=== PATIENT | male | born 1995 | race American Indian/Alaskan Native ===

== ENCOUNTER 2020-06-20 14:05 | Emergency (ER) | payer SELFPAY ==
[2020-06-20 14:22] VITALS: BP 135/61
--- NOTE | 2020-06-20 14:25 | Emergency Department Report ---
Blank Doc - Documentation Documentation: 25-year-old male that presents with cough and SOB. This initial assessment/diagnostic orders/clinical plan/treatment(s) is/are subject to change based on patient's health status, clinical progression and re- assessment by fellow clinical providers in the ED. Further treatment and workup at subsequent clinical providers discretion. Patient/guardians urged not to elope from the ED as their condition may be serious if not clinically assessed and managed. Initial orders include: 1- Patient sent to [facility] for further evaluation and treatment 2- CXR
--- NOTE | 2020-06-20 14:57 | XRay Report ---
CHEST 2 VIEWS INDICATION / CLINICAL INFORMATION: cough. COMPARISON: None available. FINDINGS: SUPPORT DEVICES: None. HEART / MEDIASTINUM: No significant abnormality. LUNGS / PLEURA: No significant pulmonary or pleural abnormality. No pneumothorax. ADDITIONAL FINDINGS: No significant additional findings. IMPRESSION: 1. No acute findings. Signer Name: Jose Medellin MD Signed: 06/20/2020 2:52 PM Workstation Name: [id number]
[2020-06-20] MEDS ORDERED: IPRATROPIUM 0.02% NEBU 2.5 ML IH ONE (15:28)
[2020-06-20] MEDS ORDERED: ALBUTEROL 2.5 MG/3 ML NEBU IH ONE (15:28)
[2020-06-20] MEDS ORDERED: dexAMETHasone 20 MG/5 ML VIAL IM ONE (15:28)
--- NOTE | 2020-06-20 15:32 | Emergency Department Report ---
ED Shortness of Breath HPI - General Chief Complaint: Dyspnea/Respdistress Stated Complaint: DIFFICULTY BREATHING Time Seen by Provider: 06/20/20 14:23 Source: patient Mode of arrival: Ambulatory Limitations: No Limitations - History of Present Illness Initial Comments: The patient was evaluated in the emergency department for symptoms described in the history of present illness. He/she was evaluated in the context of the global COVID-19 pandemic, which necessitated consideration that the patient might be at risk for infection with the virus that causes COVID-19. Institutional protocols and algorithms that pertain to the evaluation of patients at risk for COVID-19 are in a state of rapid change based on information released by regulatory bodies including the CDC and federal and state organizations. These policies and algorithms were followed during the patient's care in the emergency department. Please note that these policies, procedures and recommendations changed on a rapid basis. 25-year-old -[place] male presents to the emergency room complaining of shortness of breath and cough since last night. Patient states that he has a history of asthma and does not have an inhaler. Patient reports that his asthma usually flares up with exercise or sports. Patient denies any fever chills no nausea no vomiting no chest pain or abdominal pain. Patient states that he has noticed his chest has been wheezing and tight. MD Complaint: shortness of breath, cough -: Last night Pain Scale: 5 Consistency: constant Improves With: nothing Worsens With: nothing Known History Of: asthma Context: medication noncompliance Associated Symptoms: cough Treatments Prior to Arrival: none - Related Data Home Oxygen Therapy: No Previous Rx's Medication Instructions Recorded Last Taken Type Ibuprofen [Motrin] 600 mg PO Q6H PRN #20 tablet 01/23/14 Unknown Rx Albuterol Sulfate [Proventil Hfa] 1 puff IH QID PRN #1 hfa.aer.ad 06/20/20 Unknown Rx predniSONE [Deltasone] 40 mg PO QDAY 5 Days #10 tablet 06/20/20 Unknown Rx Allergies Allergy/AdvReac Type Severity Reaction Status Date / Time No Known Allergies Allergy Unverified 01/23/14 16:19 ED Review of Systems ROS: Stated complaint: DIFFICULTY BREATHING Other details as noted in HPI Comment: All other systems reviewed and negative ED Past Medical Hx - Past Medical History Previous Medical History?: Yes Hx Asthma: Yes (childhood) - Social History Smoking Status: Never Smoker - Medications Home Medications: Home Medications Medication Instructions Recorded Confirmed Last Taken Type Ibuprofen [Motrin] 600 mg PO Q6H PRN #20 tablet 01/23/14 Unknown Rx Albuterol Sulfate [Proventil Hfa] 1 puff IH QID PRN #1 hfa.aer.ad 06/20/20 Unknown Rx predniSONE [Deltasone] 40 mg PO QDAY 5 Days #10 tablet 06/20/20 Unknown Rx ED Physical Exam - General Limitations: No Limitations General appearance: alert, in no apparent distress - Head Head exam: Present: atraumatic, normocephalic - Eye Eye exam: Present: normal appearance - ENT ENT exam: Present: mucous membranes moist - Neck Neck exam: Present: normal inspection, full ROM - Respiratory Respiratory exam: Present: wheezes - Cardiovascular Cardiovascular Exam: Present: regular rate, normal rhythm. Absent: systolic murmur, diastolic murmur, rubs, gallop - Extremities Exam Extremities exam: Present: normal inspection, full ROM - Back Exam Back exam: Present: normal inspection - Neurological Exam Neurological exam: Present: alert, oriented X3, normal gait - Psychiatric Psychiatric exam: Present: normal affect, normal mood - Skin Skin exam: Present: warm, dry, intact, normal color. Absent: rash ED Course Vital Signs 06/20/20 14:18 Temperature 98.2 F Pulse Rate 80 Respiratory 18 Rate Blood Pressure 135/61 O2 Sat by Pulse 97 Oximetry - Reevaluation(s) Reevaluation #1: 06/20/20 17:17 Patient reports he feels much better moving air much better than before his treatment. ED Medical Decision Making - Radiology Data Radiology results: report reviewed [address] [id number] XRay Report Signed Patient: CHEYENNE BRINK MR#: [id number] : 1995 Acct:[id number] Age/Sex: 25 / M ADM Date: 06/20/20 Loc: ED Attending Dr: Ordering Physician: DUSTIN DE LEON NP Date of Service: 06/20/20 Procedure(s): XR chest routine 2V Accession Number(s): [id number] cc: DUSTIN DE LEON NP Fluoro Time In Minutes: CHEST 2 VIEWS INDICATION / CLINICAL INFORMATION: cough. COMPARISON: None available. FINDINGS: SUPPORT DEVICES: None. HEART / MEDIASTINUM: No significant abnormality. LUNGS / PLEURA: No significant pulmonary or pleural abnormality. No pneumothorax. ADDITIONAL FINDINGS: No significant additional findings. IMPRESSION: 1. No acute findings. Signer Name: Jose Medellin MD Signed: 06/20/2020 2:52 PM Workstation Name: [id number] Transcribed By: NATALIE Dictated By: Jose Medellin MD Electronically Authenticated By: Jose Medellin MD Signed Date/Time: 06/20/201451 DD/ 51 TD/TT: - Medical Decision Making 25-year-old -[place] male presents to the emergency room complaining of shortness of breath and cough since last night. Patient states that he has a history of asthma and does not have an inhaler. Patient reports that his asthma usually flares up with exercise or sports. Patient denies any fever chills no nausea no vomiting no chest pain or abdominal pain. Patient states that he has noticed his chest has been wheezing and tight. Chest x-ray is negative. Patient be started on albuterol 5 mg inhalation Atrovent 0.5 mg inhalation and dexamethasone 10 mg IM. Patient will be discharged home on prednisone, albuterol inhaler. Critical care attestation.: If time is entered above; I have spent that time in minutes in the direct care of this critically ill patient, excluding procedure time. ED Disposition Clinical Impression: Wheezing on both sides of chest Asthma Qualifiers: Asthma severity: mild Asthma persistence: unspecified Asthma complication type: with acute exacerbation Qualified Code(s): J45.901 - Unspecified asthma with (acute) exacerbation Disposition: TO HOME OR SELFCARE Is pt being admited?: No Does the pt Need Aspirin: No Condition: Stable Instructions: Asthma (ED), Reactive Airways Disease (ED) Additional Instructions: Chest x-ray is negative for any acute abnormalities. I like for you to use your inhaler and complete the prednisone as prescribed. Follow-up with your primary care provider. Prescriptions: predniSONE [Deltasone] 40 mg PO QDAY 5 Days #10 tablet Albuterol Sulfate [Proventil Hfa] 1 puff IH QID PRN #1 hfa.aer.ad PRN Reason: Wheezing Referrals: PRIMARY CARE, [Primary Care Provider] - 3-5 Days [facility] [Provider Group] - 3-5 Days
== END 2020-06-20 17:41 | disposition home or self-care (01) ==
LOC: ED 14:05
DX: J45.909 Unspecified asthma, uncomplicated (principal); Z79.899 Other long term (current) drug therapy
CPT/HCPCS: 71046; 94640; 96372; 99283; J1100